=== PATIENT | female | born 1940 | race Caucasian/White ===

== ENCOUNTER → 2016-11-17 | Outpatient (CLI) | payer MEDICARE, OTHER ==
--- NOTE | 2016-11-17 09:53 | Diagnostic Imaging Report ---
Right hip. INDICATION: Hip pain. AP and lateral views were obtained. FINDINGS: There is no fracture, dislocation or acute bony abnormality evident. There is moderate degenerative disease of the hip joint. The degenerative changes have not progressed since the prior exam of 07/21/15. The soft tissues are unremarkable. The vascular wire mesh stent overlying the right sacroiliac joint seen previously is again evident and no different. IMPRESSION: 1. There is no evidence for acute bony abnormality. 2. If clinical concern regarding an underlying injury persists and further imaging is desired, then MRI would be recommended. Dictated by: Dictated on workstation # [id number]
== END ==
LOC: RAD 09:12
PROVIDERS: ATTEND Pain Medicine Pain Medicine
DX: M25.551 Pain in right hip (principal)
CPT/HCPCS: 73502

== ENCOUNTER 2016-12-10 09:55 | Outpatient (CLI) | payer MEDICARE, OTHER ==
[~2016-12-10] VITALS: Ht 165.1 cm; Wt 73.5 kg
[2016-12-10] MEDS ORDERED: BUPIVACAINE 0.25% 30 ML (SENSORCAINE) VIAL ONE (10:01)
[2016-12-10] MEDS ORDERED: TRIAMCINOLONE ACET (KENALOG-40) 40 MG/ML 1 ML VIAL ONE (10:01)
[2016-12-10] MEDS ORDERED: LIDOCAINE 1% INJ 20 ML (XYLOCAINE) VIAL ONE (10:02)
[2016-12-10 10:15] VITALS: BP 127/113
[2016-12-10 10:38] VITALS: BP 147/95
--- NOTE | 2016-12-10 12:33 | Pain Medicine-Procedure ---
Procedure Pre-Op/Post-Op Diagnosis Diagnosis: hip osteoarthritis Indications for Operation Right hip pain Attending Surgeon Tata Procedure Date of Service: Dec 10, 2016 PROCEDURE: Right hip injection under flouroscopic guidance PROCEDURE IN DETAIL: After obtaining informed consent from the patient, the patient's chart was reviewed. The patient was brought to the procedure room and placed in the supine position. The right hip was prepped with antiseptic solution. Then, the joint was identified under fluoroscopic guidance and 2 ml's of 1% Lidocaine was used to anesthetize the skin. A 22 gauge 3.5 inch spinal needle was inserted through the skin until the needle touched the femur at the neck on the right side. Then, after negative aspiration, 2 ml of contrast dye was injected which was checked with fluoroscopic guidance which showed good spread of the dye inside the joint. Then, after negative aspiration, 80 mg of kenalog was injected mixed with 4 ml of 0.25% Marcaine. The needle was then flushed with 1 % lidocaine and removed. The patient tolerated the procedure well and a band-Aid was applied and the patient was taken to the recovery room in stable condition. Complications None ADI HUTCHINSON MD Dec 10, 2016 12:32 pm
== END 2016-12-10 10:41 ==
LOC: CARD 09:55
PROVIDERS: ATTEND Pain Medicine Pain Medicine
DX: M16.11 Unilateral primary osteoarthritis, right hip (principal); M25.551 Pain in right hip; Z79.899 Other long term (current) drug therapy; Z79.84 Long term (current) use of oral hypoglycemic drugs
CPT/HCPCS: 20610; 77002